=== PATIENT | male | born 1985 | race Caucasian/White ===

== ENCOUNTER 2016-12-13 07:05 | Day surgery (SDC) | payer BC ==
[2016-12-12 08:24] LABS: BASOPHILS 0.7 %; BASOPHILS ABSOLUTE 0.05 10/3/uL (0.0-0.16); EOSINOPHILS 2.1 %; EOSINOPHILS ABSOLUTE 0.16 10/3/uL (0.0-0.53); HEMATOCRIT 43.5 % (40.0-51.0); HEMOGLOBIN 15.1 g/dL (13.6-17.8); IMMATURE GRANULOCYTES 0.4 %; IMMATURE GRANULOCYTES ABSOLUTE 0.03 10/3/uL (0.0-0.11); LYMPHOCYTES 48.6 %; MEAN CORPUS HGB CONC 34.7 g/dL (32.0-36.0); MEAN CORPUSCULAR HEMOGLOB 31.7 pg (26.0-34.0); MEAN CORPUSCULAR VOLUME 91.2 fL (80-100); MEAN PLATELET VOLUME 9.5 fL (9.2-13.0); MONOCYTES 9.2 %; NEUTROPHILS ABSOLUTE 2.98 10/3/uL (2.02-8.40); PLATELET COUNT 259 10/3/uL (150-400); RBC DISTRIBUTION WIDTH 12.1 % (12.0-16.0); RED CELL COUNT 4.77 10/6/uL (4.7-6.1); WHITE BLOOD CELLS 7.6 10/3/uL (4.5-10.5)
[2016-12-12 08:27] LABS: MANUAL DIFF NO %
[2016-12-12 08:31] LABS: PARTIAL THROMBO TIME 29.1 SEC (22.5-37.2); PROTIME (NOT ORD) 13.3 SEC (12.0-14.5)
[2016-12-12 08:37] LABS: BUN (BLOOD UREA NITROGEN) 19 MG/DL (6-23); CALCIUM, SERUM 9.8 MG/DL (8.5-10.4); CHLORIDE, SERUM 106 MMOL/L (96-112); CO2 (CARBON DIOXIDE) 31 MMOL/L (24-34); CREATININE 1.14 MG/DL (0.70-1.30); GFR AFRICAN AMERICAN 99 ML/MIN (>=60); GFR NON AFRICAN AMERICAN 85 ML/MIN (>=60); GLUCOSE, SERUM 105 MG/DL (60-99); POTASSIUM, SERUM 4.2 MMOL/L (3.5-5.3); SODIUM, SERUM 141 MMOL/L (135-148)
--- NOTE | ~2016-12-13 | OP ---
Record Of Operation [facility] [address] [place]. [address] NAME: HELDER TAMAYO : 85 STATUS : [facility]#: [id number] AGE: 31 ADM/REG DATE : 12/13/16 MR#: [id number] REPORT SERV DATE: 12/14/16 DICTATED BY: ANTONY WOLF. DATE: 12/14/16 REPORT STATUS : Draft TRANSCRIBED BY: JHONATHAN DATE: 12/14/16 DATE OF PROCEDURE: 12/13/2016 PREOPERATIVE DIAGNOSIS: Chronic tonsillitis. POSTOPERATIVE DIAGNOSIS: Chronic tonsillitis. PROCEDURE PERFORMED: Tonsillectomy. INDICATIONS AND SIGNIFICANT HISTORY: The patient is a 31-year-old male with significant history of frequent production of bad smell and tonsillith material. Given the recurrent persistent nature of this as well as the halitosis, the patient was thought to additional medical care. Tonsillectomy was offered. OPERATIVE PROCEDURE AND FINDINGS: After informed consent was obtained, the patient was brought to the operating room, placed in the operating room table in supine position. At which point, general endotracheal anesthesia was induced by the Anesthesia Service, and the bed was turned to 90 degrees toward the dairy processing equipment operator. A Teodora-Holden mouth gag was inserted into the oral cavity and red rubber catheter into the left naris. The nasopharynx was inspected. No substantial adenoid tissue was present in the nasopharynx. Left tonsil was grasped at its superior pole, retracted toward the midline. At which point, this expelled multiple tonsilliths present. Bovie cautery was then used to dissect the left tonsil from its position in the tonsillar fossa, and hemostasis was achieved with direct pressure and suction Bovie cautery. Process was repeated for the right tonsil. After identifying no additional bleeding, the patient was turned back toward Anesthesia, aroused from anesthesia, and taken to the Postanesthesia Care Unit in satisfactory condition. COMPLICATIONS: None. ESTIMATED BLOOD LOSS: Less than 20 mL. IV FLUIDS: Per Anesthesia. DLMinal/JHONATHAN Antony Wolf M.D. / [id number] CC: Paz Watson DO
[~2016-12-13 07:05] MED LIST: *DENIES
== END 2016-12-13 12:06 | disposition home or self-care (01) ==
LOC: SDC 07:05
PROVIDERS: Otolaryngology
PROC: 0CBPXZZ Excision of Tonsils, External Approach (ICD-10-PCS; principal; 2016-12-13 08:15)
DX: J35.1 Hypertrophy of tonsils (principal); J45.909 Unspecified asthma, uncomplicated
CPT/HCPCS: 80048; 85025; 85610; 85730; 88304; A9270-GY; J0690; J1170; J2250; J2405; J3010